=== PATIENT | female | born 1935 | race Caucasian/White ===

== ENCOUNTER 2016-06-21 11:11 | Emergency (ER) | payer MEDICARE ==
[2016-06-21 11:19] VITALS: RESP 18
[2016-06-21 12:30] LABS: Anisocytosis Slight; Basophils # (A) 0.1 k/uL (0-0.2); Basophils % (A) 1 %; CH 25.7; CHCM 31.4; Eosinophils # (A) 0.2 k/uL (0-0.7); Eosinophils % (A) 2 %; HDW 2.57; HGB 10.9 gm/dL (11.4-16.0); Hypochromasia Slight; Luc # (Auto) 0.19; Luc % (Auto) 2; Lymphocytes # (A) 1.3 k/uL (1.0-4.8); Lymphocytes % (A) 13 %; MCH 26.3 pg (25.0-35.0); MCV 82.2 fL (80.0-100.0); Mean Platelet Volume 6.9; Monocytes # (A) 0.6 k/uL (0-1.0); Monocytes % (A) 7 %; Neutrophils # (A) 7.2 k/uL (1.3-7.7); Neutrophils % (A) 76 %; RBC 4.14 m/uL (3.80-5.40); RDW 17.9 % (11.5-15.5); WBC 9.6 k/uL (3.8-10.6); WBC (Perox) 9.99
[2016-06-21 12:37] LABS: Appearance,Urine Cloudy (Clear); Bacteria,Urine Occasional /hpf; Bilirubin,Urine Negative (Negative); Glucose,Urine (UA) Negative (Negative); Ketones,Urine Negative (Negative); Leukocyte Esterase,Urine Small (Negative); Mucus,Urine Moderate /hpf; Nitrite,Urine Negative (Negative); PH, Urine 7.5 (5.0-8.0); Particle Count 8968; Protein,Urine Negative (Negative); RBC,Urine 2 /hpf (0-5); Squamous Epithelial Cell,Urine 1 /hpf (0-4); UA Billing (MACRO vs. MICRO) MICRO; Urobilinogen,Urine <2.0 mg/dL (<2.0); WBC,Urine 44 /hpf (0-5)
[2016-06-21 13:04] LABS: ALT 21 U/L (9-52); AST 20 U/L (14-36); Alkaline Phosphatase 120 U/L (38-126); Anion Gap 13 mmol/L; Blood Urea Nitrogen 17 mg/dL (7-17); Calcium 9.6 mg/dL (8.4-10.2); Carbon Dioxide 26 mmol/L (22-30); Chloride 97 mmol/L (98-107); Glucose 156 mg/dL (74-99); Non-African American GFR(MDRD) >60 (>60 ml/min/1.73 sqM); Potassium 4.3 mmol/L (3.5-5.1); Sodium 136 mmol/L (137-145); Total Bilirubin 0.7 mg/dL (0.2-1.3); Total Protein 6.7 g/dL (6.3-8.2)
[2016-06-21] MEDS ORDERED: SULFAMETHOX-TMP 800-160MG 1 EACH TAB PO STA (13:49)
[2016-06-21] MEDS ORDERED: PHENAZOPYRIDINE 200 MG TAB PO STA (13:50)
--- NOTE | 2016-06-21 13:54 | ED ---
Abdominal Pain HPI - General Chief Complaint: Abdominal Pain Stated Complaint: abd pain Time Seen by Provider: 06/21/16 11:22 Source: patient Mode of arrival: EMS Limitations: no limitations - History of Present Illness Initial Comments: 80-year-old female with past medical history of right hip fracture presenting from rehab facility for superpubic abdominal pain that she has had since Friday describing it as constant pain, sharp gnawing, without radiation. Pain is worse with palpation and movement and improves minimally with sitting still. She states there are no alleviating factors to it and that this is the worst it is been. She denies nausea, vomiting, diarrhea, constipation. - Related Data Home Medications Medication Instructions Recorded Confirmed ALPRAZolam [Xanax] 0.25 mg PO Q12H PRN 06/21/16 06/21/16 Acetaminophen Tab [Tylenol Tab] 650 mg PO Q8H PRN 06/21/16 06/21/16 Aspirin EC [Ecotrin Low Dose] 81 mg PO DAILY@1700 06/21/16 06/21/16 Atorvastatin [Lipitor] 40 mg PO HS 06/21/16 06/21/16 Bisacodyl [Dulcolax] 10 mg RECTAL DAILY PRN 06/21/16 06/21/16 Carbidopa-Levodopa 25-100 mg 2 tab PO TID 06/21/16 06/21/16 [Sinemet 25-100] Cholecalciferol [Vitamin D3] 2,000 unit PO DAILY@1700 06/21/16 06/21/16 Docusate [Colace] 100 mg PO BID 06/21/16 06/21/16 Escitalopram [Lexapro] 20 mg PO DAILY 06/21/16 06/21/16 Ferrous Sulfate [Feosol] 325 mg PO TID 06/21/16 06/21/16 Fluticasone/Salmeterol [Advair 2 puff INHALATION RT-BID 06/21/16 06/21/16 250-50 Diskus] Furosemide [Lasix] 20 mg PO DAILY 06/21/16 06/21/16 Glucerna Shake 1 can PO TID-W/MEALS 06/21/16 06/21/16 HYDROcodone/APAP 5-325MG [[place] 1 tab PO Q4HR PRN 06/21/16 06/21/16 5-325] Ipratropium-Albuterol Nebulize 3 ml INHALATION RT-TID PRN 06/21/16 06/21/16 [Duoneb 0.5 mg-3 mg/3 ml Soln] Lansoprazole [Prevacid] 15 mg PO DAILY 06/21/16 06/21/16 Levothyroxine Sodium [Synthroid] 100 mcg PO DAILY 06/21/16 06/21/16 Magnesium Hydroxide [Milk of 2,400 mg PO DAILY PRN 06/21/16 06/21/16 Magnesia] Metoprolol Succinate [Toprol XL] 25 mg PO DAILY 06/21/16 06/21/16 Na Phos,M-B/Na Phos,Di-Ba [Fleet 133 ml RECTAL DAILY PRN 06/21/16 06/21/16 Adult] Pioglitazone [Actos] 15 mg PO DAILY 06/21/16 06/21/16 Potassium Chloride [K-Tab ER] 10 meq PO DAILY@1700 06/21/16 06/21/16 Warfarin [Coumadin] 2.5 mg PO DAILY@1700 06/21/16 06/21/16 buPROPion XL [Wellbutrin Xl] 150 mg PO DAILY 06/21/16 06/21/16 glipiZIDE [Glucotrol] 5 mg PO AC-BRKFST 06/21/16 06/21/16 Previous Rx's Medication Instructions Recorded Phenazopyridine HCl [Pyridium] 200 mg PO Q12HR #6 tablet 06/21/16 Sulfamethox-Tmp 800-160Mg [Bactrim 1 tab PO Q12HR #14 tab 06/21/16 DS 800-160 mg] Allergies Allergy/AdvReac Type Severity Reaction Status Date / Time Penicillins Allergy Unknown Verified 06/21/16 11:31 Review of Systems ROS Statement: Those systems with pertinent positive or pertinent negative responses have been documented in the HPI. General: Patient denies fever, chills,nausea, or vomiting. HEENT: No visual changes. No eye pain. No nasal symptoms. No dysphagia.No odynophagia. No ENT pain. Cardiac: No chest pain. No palpitations. Pulmonary; No dyspnea. GI: Positive abdominal pain, suprapubic. No diarrhea. No constipation. No bowel habit changes. No melena. No hematochezia. See general. : No dysuria.No hematuria. No hesitancy. No urgency. No renal lithiasis history. Musculoskeletal: No musculoskeletal pain. Orthopedic: Denies fracture history. Integumentary: Denies rash. Denies pruritis. Neurologic: Denies any lateralizing weakness. Denies numbness. Denies tingling. No seizure activity. Denies TIA or CVA. Heme/Onc: Denies anemia. Denies cancer. Denies adenopathy. ROS Other: All systems not noted in ROS Statement are negative. Past Medical History Past Medical History: COPD, Diabetes Mellitus, GERD/Reflux, Hypertension, Thyroid Disorder History of Any Multi-Drug Resistant Organisms: None Reported Past Surgical History: Orthopedic Surgery Additional Past Surgical History / Comment(s): rt hip replacement Past Psychological History: Anxiety Smoking Status: Never smoker Past Alcohol Use History: None Reported Past Drug Use History: None Reported General Exam - General Exam Comments Initial Comments: General: The patient is awake and alert, in moderate distress, and does not appear acutely ill. Eye: Pupils are equal, round and reactive to light, extra-ocular movements are intact; there is normal conjunctiva bilaterally. No signs of icterus. Ears, nose, mouth and throat: There are moist mucous membranes and no oral lesions. Neck: The neck is supple, there is no tenderness or JVD. Cardiovascular: There is a regular rate and rhythm. No murmur, rub or gallop is appreciated. Respiratory: Lungs are clear to auscultation, respirations are non-labored, breath sounds are equal. No wheezes, stridor, rales, or rhonchi. Gastrointestinal: Soft, non-distended, tender suprapubic abdomen with palpable/ tense bladder. There is no rebound or guarding present. No CVA tenderness. Bowel sounds are unremarkable. Back: There is no tenderness to palpation in the midline. There is no obvious deformity. No rashes noted. Musculoskeletal: Normal ROM, no tenderness, There is no pedal edema. There is no calf tenderness or swelling. Sensation intact. Pulses equal bilaterally 2+. Neurological: CN II-XII intact, There are no obvious motor or sensory deficits. Coordination appears grossly intact. Speech is normal. Skin: Skin is warm and dry and no rashes or lesions are noted. Psychiatric: Cooperative, appropriate mood & affect, normal judgment. Limitations: no limitations Course Vital Signs 06/21/16 06/21/16 11:12 14:11 Temperature 97.9 F 97.6 F Pulse Rate 73 77 Respiratory 18 18 Rate Blood Pressure 147/66 140/60 O2 Sat by Pulse 97 100 Oximetry Medical Decision Making - Medical Decision Making 80-year-old female presenting from rehab facility for evaluation of suprapubic abdominal pain. Upon presentation the patient was in moderate distress asking for help. Patient evaluated and found to have palpable bladder with tenderness to palpation. Straight cath and labs are obtained which revealed a urinary tract infection. She was asked if she had urinary retention issues and stated that she did not although the last time she urinated was yesterday. The remainder of her labs revealed no significant abnormalities. She was given a dose of antibiotic here in the ED for UTI and informs that she would be discharged back to the rehab facility with instructions to follow-up with her primary care physician. Her son was also present and he was further advised to have her return to the ED if her symptoms should worsen or persist. Patient and her son acknowledged an understanding of this information and agreed with this plan of care. - Lab Data Result diagrams: 06/21/16 12:01 06/21/16 12:30 Lab Results 06/21/16 06/21/16 06/21/16 Range/Units 12:00 12:01 12:30 WBC 9.6 (3.8-10.6) k/uL RBC 4.14 (3.80-5.40) m/uL Hgb 10.9 L (11.4-16.0) gm/dL Hct 34.0 (34.0-46.0) % MCV 82.2 (80.0-100.0) fL MCH 26.3 (25.0-35.0) pg MCHC 32.0 (31.0-37.0) g/dL RDW 17.9 H (11.5-15.5) % Plt Count 461 H (150-450) k/uL Neutrophils % 76 % Lymphocytes % 13 % Monocytes % 7 % Eosinophils % 2 % Basophils % 1 % Neutrophils # 7.2 (1.3-7.7) k/uL Lymphocytes # 1.3 (1.0-4.8) k/uL Monocytes # 0.6 (0-1.0) k/uL Eosinophils # 0.2 (0-0.7) k/uL Basophils # 0.1 (0-0.2) k/uL Hypochromasia Slight Anisocytosis Slight Sodium 136 L (137-145) mmol/L Potassium 4.3 (3.5-5.1) mmol/L Chloride 97 L (98-107) mmol/L Carbon Dioxide 26 (22-30) mmol/L Anion Gap 13 mmol/L BUN 17 (7-17) mg/dL Creatinine 0.73 (0.52-1.04) mg/dL Est GFR (MDRD) Af Amer >60 (>60 ml/min/1.73 sqM) Est GFR (MDRD) Non-Af >60 (>60 ml/min/1.73 sqM) Glucose 156 H (74-99) mg/dL Calcium 9.6 (8.4-10.2) mg/dL Total Bilirubin 0.7 (0.2-1.3) mg/dL AST 20 (14-36) U/L ALT 21 (9-52) U/L Alkaline Phosphatase 120 (38-126) U/L Total Protein 6.7 (6.3-8.2) g/dL Albumin 3.9 (3.5-5.0) g/dL Lipase 339 H (23-300) U/L Urine Color Yellow Urine Appearance Cloudy H (Clear) Urine pH 7.5 (5.0-8.0) Ur Specific [place] 1.010 (1.001-1.035) Urine Protein Negative (Negative) Urine Glucose (UA) Negative (Negative) Urine Ketones Negative (Negative) Urine Blood Negative (Negative) Urine Nitrate Negative (Negative) Urine Bilirubin Negative (Negative) Urine Urobilinogen <2.0 (<2.0) mg/dL Ur Leukocyte Esterase Small H (Negative) Urine RBC 2 (0-5) /hpf Urine WBC 44 H (0-5) /hpf Ur Squamous Epith Cells 1 (0-4) /hpf Urine Bacteria Occasional H (None) /hpf Urine Mucus Moderate H (None) /hpf Urine Yeast (Budding) Few H (None) /hpf Disposition Clinical Impression: UTI (urinary tract infection), Abdominal pain Disposition: HOME SELF-CARE Condition: Stable Instructions: Urinary Tract Infection in Women (ED) Additional Instructions: Please use medication as discussed. Please follow up with family doctor if symptoms have not improved over the next two days. Please return to the emergency room if your symptoms increase or worsen or for any other concerns. Prescriptions: Phenazopyridine HCl [Pyridium] 200 mg PO Q12HR #6 tablet Sulfamethox-Tmp 800-160Mg [Bactrim DS 800-160 mg] 1 tab PO Q12HR #14 tab Referrals: Alejandro Hernandez MD [Primary Care Provider] - 1-2 days Time of Disposition: 13:54
[2016-06-21] MEDS ORDERED: PHENAZOPYRIDINE 100 MG TAB PO STA (13:57)
[2016-06-21 14:12] VITALS: BP 140/60; PULSE 77; TEMP 97.6
== END 2016-06-21 15:11 | disposition home or self-care (01) ==
LOC: EC 11:11
DX: N39.0 Urinary tract infection, site not specified (principal); J44.9 Chronic obstructive pulmonary disease, unspecified; E11.9 Type 2 diabetes mellitus without complications; K21.9 Gastro-esophageal reflux disease without esophagitis; I10 Essential (primary) hypertension; F41.9 Anxiety disorder, unspecified; E07.9 Disorder of thyroid, unspecified; Z79.82 Long term (current) use of aspirin; Z79.899 Other long term (current) drug therapy; Z79.01 Long term (current) use of anticoagulants; Z88.0 Allergy status to penicillin; Z79.84 Long term (current) use of oral hypoglycemic drugs
CPT/HCPCS: 36415; 51701; 80053; 81001; 83690; 85025; 99285